=== PATIENT | female | born 1980 ===

== ENCOUNTER 2018-10-11 14:52 | Outpatient (CLI) | payer OTHER | END 2018-10-11 15:01 | disposition home or self-care (01) | LOC: MAMO-SONO 14:52 | DX: N64.4 Mastodynia (principal); N60.11 Diffuse cystic mastopathy of right breast; Z12.31 Encounter for screening mammogram for malignant neoplasm of breast; N63.10 Unspecified lump in the right breast, unspecified quadrant; N63.20 Unspecified lump in the left breast, unspecified quadrant ==

== ENCOUNTER 2020-07-09 12:42 | Outpatient (CLI) | payer OTHER | END 2020-07-09 12:51 | disposition home or self-care (01) | LOC: MAMO-SONO 12:42 | PROVIDERS: ATTEND Obstetrics & Gynecology Maternal & Fetal Medicine | DX: Z12.31 Encounter for screening mammogram for malignant neoplasm of breast (principal); N64.59 Other signs and symptoms in breast; N64.4 Mastodynia; N60.11 Diffuse cystic mastopathy of right breast ==